=== PATIENT | male | born 1975 ===

== ENCOUNTER 2016-09-27 20:58 | Emergency (ER) | payer OTHER ==
[2016-09-27 21:10] VITALS: RESP 18
[2016-09-27 22:03] LABS: BASO # 0.1 K/uL (0.0-0.2); BASO % 0.7 % (0.0-2.0); EOS # 0.1 K/uL (0.0-0.7); EOS % 0.8 % (0.0-4.0); HEMATOCRIT 41.6 % (35.0-51.0); LYMPH # 2.2 K/uL (1.0-4.3); LYMPH % 18.3 % (20.0-40.0); MEAN CELL VOLUME 86.7 fL (80.0-94.0); MEAN CORPUSCULAR HEMOGLOBIN 28.4 pg (27.0-31.0); MEAN CORPUSCULAR HGB CONC 32.8 g/dL (33.0-37.0); MEAN PLATELET VOLUME 7.9 fL (7.2-11.7); MONO # 1.1 K/uL (0.0-0.8); MONO % 8.9 % (0.0-10.0); RED CELL DISTRIBUTION WIDTH 12.1 % (11.5-14.5)
[2016-09-27 22:13] LABS: CHLORIDE 102 mmol/L (98-107); POTASSIUM 3.7 mmol/L (3.6-5.2); SODIUM 137 mmol/L (132-148)
[2016-09-27 22:15] LABS: AST/SGOT 21 U/L (17-59); BILIRUBIN,TOTAL 0.7 mg/dL (0.2-1.3); CARBON DIOXIDE 25 mmol/L (22-30); GFR AFRICAN-AMERICAN > 60
[2016-09-27 22:16] LABS: ALB/GLOB RATIO 1.3 (1.0-2.1); ALKALINE PHOSPHATASE 55 U/L (38-126); ALT/SGPT 41 U/L (21-72); BLOOD UREA NITROGEN 15 mg/dL (9-20); CALCIUM 8.6 mg/dl (8.6-10.4); GLUCOSE,RANDOM 108 mg/dL (75-110); TOTAL PROTEIN 6.8 g/dL (6.3-8.3)
[2016-09-27] MEDS ORDERED: Iohexol 300 100 ML IJ ONE (22:21)
--- NOTE | 2016-09-27 22:45 | C.PDOC ---
History Of Present Illness A 41 y/o M with a hx of root canal a month prior, presents to the ER c/o sudden onset of swelling of the left side of the cheek and face that occurred today. States he was given antibiotics after his root canal and the swelling improved. But the swelling has returned today, which prompted the visit today. Denies fever, chills, trauma to the area, weakness, numbness, headache, or any other complaints. Time Seen by Provider: 09/27/16 21:13 Chief Complaint (Nursing): Dental Pain History Per: Patient History/Exam Limitations: no limitations Onset/Duration Of Symptoms: Hrs Current Symptoms Are (Timing): Still Present Severity: Mild Quality: Positive for: Other (Swelling) Recent travel outside of the [place]: No Additional History Per: Patient Past Medical History Reviewed: Historical Data, Nursing Documentation, Vital Signs Vital Signs: Last Vital Signs Temp 97.9 F 09/28/16 00:23 Pulse 74 09/28/16 00:23 Resp 18 09/28/16 00:23 BP 111/71 09/28/16 00:23 Pulse Ox 96 09/28/16 00:34 Family History: States: Unknown Family Hx - Social History Hx Alcohol Use: No Hx Substance Use: No - Immunization History Hx Tetanus Toxoid Vaccination: No Hx Influenza Vaccination: No Hx Pneumococcal Vaccination: No Review Of Systems Except As Marked, All Systems Reviewed And Found Negative. Constitutional: Positive for: Other (Swelling of the left side of the cheek and face). Negative for: Fever, Chills Musculoskeletal: Negative for: Other (Trauma) Neurological: Negative for: Weakness, Numbness, Headache Physical Exam - Physical Exam Appears: Non-toxic, No Acute Distress Skin: Warm, Dry Head: Atraumatic, Swelling (Moderate swelling to the left cheek area and to the left hard palate.), No Abrasion Eye(s): bilateral: Normal Inspection, PERRL, EOMI Ear(s): Bilateral: Normal Oral Mucosa: Moist, No Drooling, No Trismus Throat: Normal, No Erythema, No Exudate Neck: Normal ROM, Supple Lymphatic: Normal Exam Chest: Symmetrical, No Tenderness Cardiovascular: Rhythm Regular Respiratory: Normal Breath Sounds Extremity: Normal ROM Neurological/Psych: Oriented x3, Normal Speech, Normal Cognition, Normal Cranial Nerves, Normal Motor, Normal Sensation Gait: Steady ED Course And Treatment - Laboratory Results Result Diagrams: 09/27/16 22:00 09/27/16 22:00 O2 Sat by Pulse Oximetry: 96 (RA) Pulse Ox Interpretation: Normal Medical Decision Making Medical Decision Making: Impression: A 41 y/o M with a hx of root canal a month prior, presents to the ER c/o sudden onset of swelling of the left side of the cheek and face that occurred today. Plans: * CT Neck w/o contrast * IV fluids * Blood work up * Reassess Ct scan reveals abscess which does not extend to the muscle or bone. Patient is in no acute distress with the swelling decreasing. Patient is afebrile and denies weakness and numbness at this time. Patient reports that she has an oral surgeon which he will follow up with in 1-2 days without fail. return to the ER is symptoms worsens. Disposition - Disposition Referrals: Matthew Mjeía MD [Non-Staff] - Disposition: HOME/ ROUTINE Disposition Time: 00:34 Condition: GOOD Additional Instructions: Follow up with the Dentist within 1-2 days without fail. Return if worsened. Prescriptions: Clindamycin [Cleocin] 300 mg PO TID #30 cap Ibuprofen [Motrin Tab] 800 mg PO TID #20 tab Instructions: Dental Abscess (ED) Forms: [facility] (Frisian), Work Excuse - Clinical Impression Clinical Impression: Dental abscess - Scribe Statement The provider has reviewed the documentation as recorded by the Scribe Ren escamilla All medical record entries made by the Scribe were at my direction and personally dictated by me. I have reviewed the chart and agree that the record accurately reflects my personal performance of the history, physical exam, medical decision making, and the department course for this patient. I have also personally directed, reviewed, and agree with the discharge instructions and disposition.
--- NOTE | 2016-09-27 23:42 | CT ---
EXAM: CT Neck With Intravenous Contrast CLINICAL HISTORY: 41 years old, male; Pain and signs and symptoms and condition or disease; Dental caries; Abscess, cutaneous; Neck pain; Additional info: Swelling to the l cheek, R/O dental abscess TECHNIQUE: Axial computed tomography images of the neck with intravenous contrast. All CT scans at this facility use one or more dose reduction techniques, viz.: automated exposure control; ma/kV adjustment per patient size (including targeted exams where dose is matched to indication; i.e. head); or iterative reconstruction technique. Coronal and sagittal reformatted images were created and reviewed. CONTRAST: 100 mL of omnipaque 300 administered intravenously. COMPARISON: No relevant prior studies available. FINDINGS: Nasopharynx: Mucoperiosteal thickening of the left maxillary sinus is identified. Oropharynx: Decreased attenuation is identified along the periapical tissue of the left premolar root, possibly representing a dental abscess. No significant tonsillar enlargement. No peritonsillar abscess. Hypopharynx: Unremarkable. Larynx: Unremarkable. Normal epiglottis. Trachea: Unremarkable. Retropharyngeal space: Unremarkable. Submandibular/parotid glands: Unremarkable. Glands are normal in size. Thyroid: Unremarkable. No enlarged or calcified nodules. Bones/joints: No acute fracture. Soft tissues: Infiltration of the soft tissues anterior to the left maxilla. No discrete fluid collection, suitable for drainage. Vasculature: No acute findings. Lymph nodes: Multiple non-pathologically enlarged lymph nodes are identified within the submental and bilateral cervical chains, a nonspecific finding. Lung apices: Unremarkable as visualized. IMPRESSION: Finding suggestive of a dental abscess, at the level of the left premolar root (tooth 33/34) with adjacent infiltration of the anterior soft tissues.
[2016-09-28 00:24] VITALS: BP 111/71; PULSE 74; TEMP 97.9
[2016-09-28 00:34] VITALS: O2SAT 96
== END 2016-09-28 00:43 | disposition home or self-care (01) ==
LOC: C.ER 20:58 → SUPCPDRO 20:58 → C.ER 09-28 00:43
DX: K04.7 Periapical abscess without sinus (principal)
CPT/HCPCS: 70491; 80053; 85025; 99283; Q9967

== ENCOUNTER 2016-10-21 16:09 | Emergency (ER) | payer OTHER ==
[2016-10-21 16:15] VITALS: O2SAT 100
[2016-10-21] MEDS ORDERED: Sodium Chloride 0.9% 1,000 ML IV ONE (16:26)
[2016-10-21] MEDS ORDERED: Sodium Chloride 0.9% 1,000 ML ONE (16:52)
[2016-10-21 17:09] LABS: BASO % 0.2 % (0.0-2.0); EOS % 0.3 % (0.0-4.0); HEMATOCRIT 43.4 % (35.0-51.0); LYMPH # 0.6 K/uL (1.0-4.3); LYMPH % 3.7 % (20.0-40.0); MEAN CELL VOLUME 85.3 fL (80.0-94.0); MEAN CORPUSCULAR HEMOGLOBIN 28.3 pg (27.0-31.0); MEAN CORPUSCULAR HGB CONC 33.1 g/dL (33.0-37.0); MEAN PLATELET VOLUME 7.9 fL (7.2-11.7); MONO % 6.5 % (0.0-10.0); PLATELET COUNT 245 K/uL (130-400); RED CELL DISTRIBUTION WIDTH 12.4 % (11.5-14.5); WHITE BLOOD COUNT 15.3 K/uL (4.8-10.8)
[2016-10-21 17:17] LABS: CHLORIDE 101 mmol/L (98-107); POTASSIUM 4.7 mmol/L (3.6-5.2); SODIUM 138 mmol/L (132-148)
[2016-10-21 17:18] LABS: RBC URINE < 1 /hpf (0-3); URINE BILIRUBIN NEGATIVE (NEGATIVE); URINE BLOOD NEGATIVE (NEGATIVE); URINE COLOR Yellow (YELLOW); URINE GLUCOSE (UA) NORMAL (Normal); URINE KETONE NEGATIVE (NEGATIVE); URINE LEUKOCYTE ESTERASE NEG Leu/uL (Negative); URINE PROTEIN NEGATIVE (NEGATIVE); URINE UROBILINOGEN NORMAL mg/dL (0.2-1.0); WBC URINE 1 /hpf (0-5)
[2016-10-21 17:19] LABS: GFR AFRICAN-AMERICAN > 60
[2016-10-21 17:20] LABS: ALB/GLOB RATIO 1.4 (1.0-2.1); ALKALINE PHOSPHATASE 89 U/L (38-126); ALT/SGPT 219 U/L (21-72); AST/SGOT 328 U/L (17-59); BILIRUBIN,TOTAL 1.1 mg/dL (0.2-1.3); BLOOD UREA NITROGEN 10 mg/dL (9-20); CALCIUM 8.5 mg/dl (8.6-10.4); CARBON DIOXIDE 26 mmol/L (22-30); GLUCOSE,RANDOM 92 mg/dL (75-110); TOTAL PROTEIN 7.2 g/dL (6.3-8.3)
--- NOTE | 2016-10-21 17:20 | C.PDOC ---
History Of Present Illness 41 yr old male presents to the ER with complaints of crampy periumbical pain, loose stool and nausea for the past few days. Patient reports of self induced attempts of vomiting, with scant bilious vomiting. Patient denies fever, chills , chest pain, SOB, dysuria, weakness or numbness. Time Seen by Provider: 10/21/16 16:24 Chief Complaint (Nursing): Abdominal Pain History Per: Patient History/Exam Limitations: no limitations Onset/Duration Of Symptoms: Days Location Of Pain/Discomfort: Periumbilical Past Medical History Reviewed: Historical Data, Nursing Documentation, Vital Signs Vital Signs: Last Vital Signs Temp 98.8 F 10/21/16 19:30 Pulse 76 10/21/16 19:30 Resp 18 10/21/16 19:30 BP 129/82 10/21/16 19:30 Pulse Ox 100 10/21/16 19:30 Family History: States: No Known Family Hx - Social History Hx Alcohol Use: No Hx Substance Use: No - Immunization History Hx Tetanus Toxoid Vaccination: No Hx Influenza Vaccination: No Hx Pneumococcal Vaccination: No Review Of Systems Except As Marked, All Systems Reviewed And Found Negative. Constitutional: Negative for: Fever, Chills Cardiovascular: Negative for: Chest Pain Respiratory: Negative for: Shortness of Breath Gastrointestinal: Positive for: Vomiting, Abdominal Pain, Diarrhea (Loose stool) Genitourinary: Negative for: Dysuria Neurological: Negative for: Weakness, Numbness Physical Exam - Physical Exam Appears: Non-toxic, No Acute Distress Skin: Warm, Dry, No Rash Head: Atraumatic, Normacephalic Oral Mucosa: Moist Throat: Normal, No Erythema, No Exudate, No Drooling Chest: Symmetrical, No Tenderness Cardiovascular: Rhythm Regular, No Murmur Respiratory: Normal Breath Sounds, No Rales, No Rhonchi, No Stridor, No Wheezing Gastrointestinal/Abdominal: Soft, No Guarding, No Rebound, Other ((-) Mcburnys Signs. Gonsalves Signs.) Extremity: Normal ROM, No Swelling Neurological/Psych: Oriented x3, Normal Speech, Normal Motor ED Course And Treatment - Laboratory Results Result Diagrams: 10/21/16 17:05 10/21/16 17:05 Lab Interpretation: Abnormal (ua neg.) O2 Sat by Pulse Oximetry: 100 (RA) Pulse Ox Interpretation: Normal - CT Scan/US CT Abd/Pelvis Other Rad Studies (CT/US): Radiology Report Reviewed (no acute findings.) Reevaluation Time: 20:37 Reassessment Condition: Improved (normal bowel sounds, no che-umbilical pain, neg Gonsalves/McBurney) Medical Decision Making Medical Decision Making: PLAN: * X-Ray - Obstructive Series * CBC * CMP * Urinalysis * Toradol IVP * Sodium Chloride IV * Initially suspecting SBO vs ilius due to pt's che-umbilical pain and vomiting and no BM, but CT abd and leukocytosis prob related to vomiting. s/s resolved prior to d/c. No further treatment indicated. Disposition Doctor Will See Patient In The: Office Counseled Patient/Family Regarding: Studies Performed, Diagnosis - Disposition Disposition: HOME/ ROUTINE Disposition Time: 20:39 Condition: GOOD Forms: [facility] (Turkmen) - Clinical Impression Clinical Impression: Diarrhea, Abdominal pain - Scribe Statement The provider has reviewed the documentation as recorded by the Clif Canales Provider Attestation: All medical record entries made by the Clif were at my direction and personally dictated by me. I have reviewed the chart and agree that the record accurately reflects my personal performance of the history, physical exam, medical decision making, and the department course for this patient. I have also personally directed, reviewed, and agree with the discharge instructions and disposition.
--- NOTE | 2016-10-21 17:44 | RAD ---
PROCEDURE: Radiographs of the chest and abdomen (obstructive series) HISTORY: abd pain COMPARISON: No prior. TECHNIQUE: AP radiograph of the chest, with upright and supine radiographs of the abdomen. FINDINGS: CHEST: Lungs: Clear. Cardiovascular: Normal size heart. No pulmonary vascular congestion. Pleura: No pleural fluid. No pneumothorax. Other findings: None. ABDOMEN AND PELVIS: Bowel: Unremarkable bowel gas pattern. No evidence of mechanical obstruction. Free air: None. Bones: Unremarkable. Other findings: None. IMPRESSION: Unremarkable radiographs of chest and abdomen. No evidence of mechanical bowel obstruction.
[2016-10-21] MEDS ORDERED: Iohexol 300 100 ML IJ ONE (18:56)
[2016-10-21 19:26] LABS: TOTAL CELLS COUNTED 100
[2016-10-21 19:27] LABS: NEUTROPHIL 90 % (50-75)
[2016-10-21 19:32] VITALS: RESP 18
--- NOTE | 2016-10-21 20:15 | CT ---
EXAM: CT Abdomen and Pelvis With Intravenous Contrast EXAM DATE/TIME: Exam ordered 10/21/2016 6:29 PM CLINICAL HISTORY: 41 years old, male; Pain; Abdominal pain; Flank; Right upper quadrant (ruq); Additional info: Periumbilical, ? ap TECHNIQUE: Axial computed tomography images of the abdomen and pelvis with intravenous contrast. All CT scans at this facility use one or more dose reduction techniques, viz.: automated exposure control; ma/kV adjustment per patient size (including targeted exams where dose is matched to indication; i.e. head); or iterative reconstruction technique. Coronal and sagittal reformatted images were created and reviewed. CONTRAST: 100 mL of omnipaque 300 administered intravenously. COMPARISON: No relevant prior studies available. FINDINGS: Lower thorax: Mild hypoventilatory changes are seen at both lung bases. There is a small hiatal hernia. An air-fluid level is noted within the distal esophagus. ABDOMEN: Liver: Unremarkable. No mass. Gallbladder and bile ducts: Unremarkable. No calcified stones. No ductal dilation. Pancreas: Unremarkable. No mass. No ductal dilation. Spleen: Unremarkable. No splenomegaly. Adrenals: Unremarkable. No mass. Kidneys and ureters: There is a 5 mm exophytic cortical cyst in the right kidney . 2 mm nonobstructing calculus in the upper pole of the right kidney. 1.2 mm calculus is noted in the lower pole of the right kidney. In the distal ureter there is a punctate less than 1 mm calculus. No hydronephrosis. Stomach and bowel: Unremarkable. No obstruction. No mucosal thickening. Appendix: No findings to suggest acute appendicitis. PELVIS: Bladder: Unremarkable. No mass. Reproductive: The prostate measures 3.1 x 4.8 x 4 cm. ABDOMEN and PELVIS: Intraperitoneal space: Unremarkable. No free air. No significant fluid collection. Bones/joints: No acute fracture. No dislocation. Soft tissues: There is a tiny umbilical hernia containing fat. Vasculature: Unremarkable. No abdominal aortic aneurysm. Lymph nodes: A lymph node is noted in the portacaval space measuring 2.2 x 0.7 x 1.2 cm. A left para-aortic lymph node is noted measuring 1.5 x 0.6 x 2 cm. Subcentimeter obturator lymph nodes are noted in the pelvis. IMPRESSION: 1. No acute findings. The appendix appears normal. 2. Air-fluid level noted within the distal esophagus with small hiatal hernia. Finding suggests gastroesophageal reflux disease. 3. Exophytic right renal cortical cysts. 4. Two nonobstructing calcifications in the right kidney. Punctate less than 1 mm calculus suggested in the distal right ureter proximal to the ureterovesicular junction. No hydronephrosis. No hydroureter. Images were attached to this report and are available at [email or web address]
[2016-10-21 20:50] VITALS: BP 135/82; PULSE 74; TEMP 98.7
== END 2016-10-21 20:52 | disposition home or self-care (01) ==
LOC: C.ER 16:09
DX: R19.7 Diarrhea, unspecified (principal); R10.11 Right upper quadrant pain
CPT/HCPCS: 74022; 74177; 80053; 81001; 83690; 85025; 96361; 96374; 99285; J1885; J7040; Q9967